=== PATIENT | male | born 1950 | race Caucasian/White ===

== ENCOUNTER 2022-01-02 04:58 | Inpatient (IN) ==
[2022-01-02 05:29] LABS: PCO2 Arterial 91 mmHg (35-45); PO2 Arterial 59 mmHg (80-100)
[2022-01-02] MEDS ORDERED: Magnesium Hydroxide LIQ 30 ML UDC PO PRN (05:37)
[2022-01-02] MEDS ORDERED: Albuterol HFA INHALER 8 gm MDI INH PRN (05:37)
[2022-01-02] MEDS ORDERED: Dextrose 50% Syringe 50 ml 25 GM/50 ML SYRINGE IV PUSH PRN (05:44)
[2022-01-02 05:48] LABS: INR 1.1 (0.86-1.15)
[2022-01-02 06:03] LABS: ABS Lymphocytes 0.2 10^3/ul (1.0-4.8); ABS Monocytes 0.7 10^3/ul (0-0.8); ABS Neutrophils 5.8 10^3/ul (1.5-7.7); Eosinophil % 0.2 %; Hematocrit 31 % (42-52); Hemoglobin 9.4 g/dL (14.0-18.0); Lymphocyte % 2.4 %; Mean Corpuscular HGB Conc 30 g/dL (31-36); Mean Corpuscular Hemoglobin 33 pg (27-31); Mean Corpuscular Volume 108 fL (80-94); Mean Platelet Volume 7.3 fL (7.4-10.4); Nucleated Red Blood Cells % 0.2; Platelet Count 214 10^3/uL (150-450); Red Cell Distribution Width 22 % (10-15); White Blood Count 6.7 10^3/uL (3.5-10.8)
[2022-01-02 06:14] LABS: ALT 12 U/L (7-52); AST 16 U/L (13-39); Albumin/Globulin Ratio 0.9 (1-3); Alkaline Phosphatase 115 U/L (35-149); Blood Urea Nitrogen 23 mg/dL (6-24); CO2 Carbon Dioxide 36 mmol/L (22-32); Calcium 8.6 mg/dL (8.6-10.3); Chloride 98 mmol/L (101-111); Globulin 3.4 g/dL (2-4); Glucose 136 mg/dL (70-100); Potassium 4.5 mmol/L (3.5-5.0); Sodium 134 mmol/L (135-145); Total Protein 6.4 g/dL (6.4-8.9); eGFR CKD-EPI 41.9 (>60)
[2022-01-02 06:24] LABS: Cholesterol 120 mg/dL; HDL Cholesterol 41.3 mg/dL; LDL Cholesterol 61 mg/dL; Triglycerides 90 mg/dL
[2022-01-02 06:31] LABS: Macrocytosis 2+; Stomatocytes 2+
[2022-01-02 06:32] LABS: Basophilic Stippling 2+; Polychromasia 1+
[2022-01-02 06:41] LABS: C Reactive Protein 63.15 mg/L (<8.01)
[2022-01-02 07:16] LABS: PO2 Arterial 271 mmHg (80-100)
[2022-01-02 07:37] LABS: PCO2 Arterial 111 mmHg (35-45)
[2022-01-02] MEDS ORDERED: Rocuronium 50 mg VIAL 10 mg/ml 5 ml VIAL (50 mg) ONE ×2 (08:24→10:02)
[2022-01-02] MEDS ORDERED: Succinylcholine 200 mg VIAL 20 mg/ml 10 ml VIAL (200 mg) ONE (08:24)
[2022-01-02] MEDS ORDERED: Propofol 10 mg/ml 100 ML BTL 100 ML ONE (08:28)
[2022-01-02] MEDS: Propofol 10 mg/ml 100 ML BTL 100 ML IV SCH ×2 (08:30→20:46)
[2022-01-02] MEDS ORDERED: Propofol 10 MG/ML 20 ML BTL ONE (08:38)
[2022-01-02] MEDS ORDERED: Fluticasone HFA 220 mcg(NF) MDI INH SCH (09:00)
[2022-01-02] MEDS ORDERED: Enoxaparin 80 MG/0.8 ML SYR SUBCUT SCH (09:00)
[2022-01-02] MEDS ORDERED: Mometasone/Formoter 200/5 MDI INH SCH (09:00)
[2022-01-02] MEDS ORDERED: Albuterol/Ipratropium NEB.SOL (2.5/0.5 MG) 3 ML NEB.SOLN ONE ×2 (09:12→09:57)
[2022-01-02] MEDS ORDERED: Norepinephrine 16MCG/ML BAGD5W 4,000 MCG/250 ML BAG IV ONE (09:56)
[2022-01-02] MEDS: Norepinephrine 16MCG/ML BAGD5W 4,000 MCG/250 ML BAG IV SCH (10:00)
[2022-01-02] MEDS ORDERED: methylPREDNISolone 125 mg 2 ML VIAL ONE (10:13)
[2022-01-02] MEDS ORDERED: Magnesium Sulfate 2 gm BAG 2 GM/50 ML BAG ONE (10:13)
[2022-01-02 10:44] LABS: PCO2 Arterial 66 mmHg (35-45)
[2022-01-02 10:46] LABS: PO2 Arterial 41 mmHg (80-100)
[2022-01-02] MEDS ORDERED: Magnesium Sulfate 2 gm BAG 2 GM/50 ML BAG IVPB ONE (10:59)
[2022-01-02] MEDS ORDERED: NORMOSOL-R pH 7.4 1000 mL BAG 500 ML IV SCH (11:00)
[2022-01-02] MEDS ORDERED: methylPREDNISolone 125 mg 2 ML VIAL IV ONE (11:00)
[2022-01-02] MEDS ORDERED: Rocuronium 50 mg VIAL 10 mg/ml 5 ml VIAL (50 mg) IV ONE (11:01)
[2022-01-02] MEDS: Polyethylene Glycol 3350 17 GM PACKET PO SCH ×2 (11:20→20:45)
[2022-01-02] MEDS: Multivitamins/Minerals TAB PO SCH (11:20)
[2022-01-02] MEDS ORDERED: Zosyn per Pharmacy NOTE FOLLOW UP PRN (11:31)
[2022-01-02 11:41] LABS: Urine Appearance Clear; Urine Bilirubin Negative (Negative); Urine Blood Negative (Negative); Urine Color Yellow; Urine Glucose Negative (Negative); Urine Ketones Negative (Negative); Urine Nitrite Negative (Negative); Urine Protein 2+(100 mg/dL) (Negative); Urine Specific Gravity 1.012 (1.002-1.030); Urine Urobilinogen Negative (Negative)
[2022-01-02 11:44] LABS: PCO2 Arterial 54 mmHg (35-45)
[2022-01-02 11:47] LABS: PO2 Arterial 55 mmHg (80-100)
[2022-01-02 11:51] LABS: Body Fluid Source Broncheoalveolar lav
[2022-01-02] MEDS ORDERED: Vancomycin per Pharmacy 1 EA NOTE FOLLOW UP SCH (12:00)
[2022-01-02] MEDS ORDERED: Piperacillin/Tazobac ADVAN 3.375 GM in NS 0.9% 100 ml BAG 100 ML IV ONE (12:00)
[2022-01-02] MEDS ORDERED: Zosyn per Pharmacy NOTE FOLLOW UP SCH (12:00)
[2022-01-02] MEDS ORDERED: Vancomycin 1,000 MG in NS 0.9% 250 ml 250 ML IVPB ONE (12:00)
[2022-01-02] MEDS: Pantoprazole VIAL 40 MG VIAL IV SCH (12:17)
[2022-01-02] MEDS: Chlorhexidine MOUTHWASH 0.12% 15 ML UDC TOPICAL SCH ×4 (12:17→23:55)
[2022-01-02] MEDS: Bacitracin OINTMENT TUBE TOPICAL SCH (12:23)
[2022-01-02 13:12] LABS: Urine Bacteria Absent (Absent); Urine Red Blood Cell Absent (Absent); Urine White Blood Cell Absent (Absent)
[2022-01-02 14:17] LABS: Body Fluid Appearance Cloudy
[2022-01-02 14:18] LABS: Body Fluid Color Colorless
[2022-01-02 14:25] LABS: Body Fluid NRBC 8; Body Fluid Total Cells Counted 300
[2022-01-02] MEDS ORDERED: Warfarin per PHARMACY **NOTE FOLLOW UP SCH (16:00)
[2022-01-02] MEDS ORDERED: Heparin 5000 UNITS/ML 1 mL VIAL IV SCH (16:00)
[2022-01-02] MEDS: Heparin DRIP 25,000 UNITS BAG 25,000 UNITS/500 ML BAG IV SCH ×2 (16:56→23:56)
[2022-01-02] MEDS: ZOSYN 3.375 GM Q8H per EXTENDED INFUSION IV SCH (17:01)
[2022-01-02 17:03] LABS: ABS Lymphocytes 0.1 10^3/ul (1.0-4.8); ABS Monocytes 0.5 10^3/ul (0-0.8); ABS Neutrophils 10.8 10^3/ul (1.5-7.7); Eosinophil % 0.1 %; Hematocrit 28 % (42-52); Hemoglobin 8.5 g/dL (14.0-18.0); Mean Corpuscular HGB Conc 30 g/dL (31-36); Mean Corpuscular Hemoglobin 33 pg (27-31); Mean Corpuscular Volume 107 fL (80-94); Mean Platelet Volume 7.8 fL (7.4-10.4); Nucleated Red Blood Cells % 0.2; Platelet Count 201 10^3/uL (150-450); Red Blood Count 2.63 10^6 /uL (4.18-5.48); Red Cell Distribution Width 22 % (10-15); White Blood Count 11.5 10^3/uL (3.5-10.8)
[2022-01-02 17:30] LABS: eGFR CKD-EPI 31.3 (>60)
[2022-01-02] MEDS ORDERED: Dextran 70/Hypromellose Tears Eye Drops 15 ml BTL (for Artificials Tears) BOTH EYES PRN (18:03)
[2022-01-02] MEDS: Senna TAB 8.6 mg TAB PO SCH (20:44)
[2022-01-02] MEDS: Insulin GLARGINE 100 un/ml 10 ml VIAL SUBCUT SCH (20:45)
[2022-01-02] MEDS ORDERED: Senna TAB 8.6 mg TAB PO SCH (21:00)
[2022-01-02] MEDS ORDERED: NS 0.9% 100 ml BAG 100 ML ONE (23:52)
[2022-01-03] MEDS: Norepinephrine 16MCG/ML BAGD5W 4,000 MCG/250 ML BAG IV SCH (01:22)
[2022-01-03] MEDS: ZOSYN 3.375 GM Q8H per EXTENDED INFUSION IV SCH ×2 (01:23→07:56)
[2022-01-03] MEDS: Propofol 10 mg/ml 100 ML BTL 100 ML IV SCH ×3 (03:14→23:30)
[2022-01-03] MEDS: Chlorhexidine MOUTHWASH 0.12% 15 ML UDC TOPICAL SCH ×6 (04:42→23:31)
[2022-01-03 05:21] LABS: ABS Lymphocytes 0.2 10^3/ul (1.0-4.8); ABS Monocytes 0.9 10^3/ul (0-0.8); ABS Neutrophils 13.9 10^3/ul (1.5-7.7); Hematocrit 26 % (42-52); Lymphocyte % 1.5 %; Mean Corpuscular HGB Conc 31 g/dL (31-36); Mean Corpuscular Hemoglobin 33 pg (27-31); Mean Corpuscular Volume 104 fL (80-94); Nucleated Red Blood Cells % 0.1; Platelet Count 277 10^3/uL (150-450); Red Blood Count 2.48 10^6 /uL (4.18-5.48); Red Cell Distribution Width 23 % (10-15)
[2022-01-03 05:36] LABS: INR 1.45 (0.86-1.15)
[2022-01-03 05:54] LABS: Calcium 8.5 mg/dL (8.6-10.3); Magnesium 2.5 mg/dL (1.9-2.7); Phosphorus 6.5 mg/dL (2.5-5.0); Potassium 4.5 mmol/L (3.5-5.0); Vancomycin Random 8.9 mcg/mL; eGFR CKD-EPI 24.2 (>60)
[2022-01-03] MEDS ORDERED: Vancomycin Random Level NOTE FOLLOW UP ONE (06:00)
[2022-01-03] MEDS ORDERED: NS 0.9% 100 ml BAG 100 ML ONE (06:08)
[2022-01-03] MEDS: Polyethylene Glycol 3350 17 GM PACKET PO SCH ×2 (09:24→21:17)
[2022-01-03] MEDS: Docusate LIQ 100 MG/10 ML UDC PO SCH ×2 (09:24→21:16)
[2022-01-03] MEDS: Multivitamins/Minerals TAB PO SCH (09:35)
[2022-01-03] MEDS: Bacitracin OINTMENT TUBE TOPICAL SCH (09:35)
[2022-01-03] MEDS ORDERED: Vancomycin 1000 MG in NS 0.9% 250 ML IVPB ONE (10:00)
[2022-01-03] MEDS: Pantoprazole VIAL 40 MG VIAL IV SCH (10:46)
[2022-01-03 13:53] LABS: Calcium 8.3 mg/dL (8.6-10.3); Potassium 4.1 mmol/L (3.5-5.0); eGFR CKD-EPI 22.1 (>60)
[2022-01-03] MEDS: Bumetanide IV 0.25 MG/ML 4 ml VIAL (1 mg) SLOW PUSH SCH ×2 (14:17→21:54)
[2022-01-03] MEDS: Heparin DRIP 25,000 UNITS BAG 25,000 UNITS/500 ML BAG IV SCH (15:37)
[2022-01-03] MEDS: Warfarin DAILY REMINDER **NOTE FOLLOW UP SCH (17:50)
[2022-01-03] MEDS: ZOSYN 3.375 GM Q12H per EXTENDED INFUSION IV SCH (19:29)
[2022-01-03] MEDS: Senna TAB 8.6 mg TAB PO SCH (21:16)
[2022-01-03] MEDS: Insulin GLARGINE 100 un/ml 10 ml VIAL SUBCUT SCH (21:17)
[2022-01-04] MEDS: methylPREDNISolone SOD 40 mg/ml 1 ml VIAL IV SCH ×3 (00:53→21:04)
[2022-01-04] MEDS: Chlorhexidine MOUTHWASH 0.12% 15 ML UDC TOPICAL SCH ×6 (03:34→23:58)
[2022-01-04 04:20] LABS: Hematocrit 24 % (42-52); Hemoglobin 7.6 g/dL (14.0-18.0); Mean Corpuscular HGB Conc 32 g/dL (31-36); Mean Corpuscular Hemoglobin 33 pg (27-31); Mean Corpuscular Volume 102 fL (80-94); Mean Platelet Volume 7.8 fL (7.4-10.4); Platelet Count 248 10^3/uL (150-450); Red Blood Count 2.33 10^6 /uL (4.18-5.48); Red Cell Distribution Width 22 % (10-15); White Blood Count 9.6 10^3/uL (3.5-10.8)
[2022-01-04 04:26] LABS: INR 5.31 (0.86-1.15)
[2022-01-04 04:54] LABS: Magnesium 2.5 mg/dL (1.9-2.7); Phosphorus 6.5 mg/dL (2.5-5.0); Potassium 4.7 mmol/L (3.5-5.0); Vancomycin Random 15.2 mcg/mL; eGFR CKD-EPI 18.3 (>60)
[2022-01-04 05:04] LABS: Anisocytosis 2+; Hypochromasia 1+; Target Cells 1+
[2022-01-04 05:05] LABS: Microcytosis 1+
[2022-01-04 05:06] LABS: ABS Basophils 0.1 10^3/ul (0-0.2); ABS Lymphocytes 0.1 10^3/ul (1.0-4.8); ABS Monocytes 0.4 10^3/ul (0-0.8); ABS Neutrophils 8.9 10^3/ul (1.5-7.7); Lymphocyte % 1.5 %; Nucleated Red Blood Cells % 0.2
[2022-01-04] MEDS ORDERED: Vancomycin Random Level NOTE FOLLOW UP ONE (06:00)
[2022-01-04] MEDS: Propofol 10 mg/ml 100 ML BTL 100 ML IV SCH ×2 (08:38→14:23)
[2022-01-04] MEDS: Polyethylene Glycol 3350 17 GM PACKET PO SCH ×2 (08:39→21:23)
[2022-01-04] MEDS: Bumetanide IV 0.25 MG/ML 4 ml VIAL (1 mg) SLOW PUSH SCH ×2 (08:39→21:04)
[2022-01-04] MEDS: Docusate LIQ 100 MG/10 ML UDC PO SCH ×2 (08:39→21:23)
[2022-01-04] MEDS: ZOSYN 3.375 GM Q12H per EXTENDED INFUSION IV SCH ×2 (08:55→19:07)
[2022-01-04] MEDS: Bacitracin OINTMENT TUBE TOPICAL SCH (08:55)
[2022-01-04] MEDS: Multivitamins ADULT w/MIN LIQ 15 ML UDC PO SCH (08:56)
[2022-01-04] MEDS: Pantoprazole VIAL 40 MG VIAL IV SCH (11:34)
[2022-01-04 11:56] LABS: PCO2 Arterial 40 mmHg (35-45); PO2 Arterial 69 mmHg (80-100)
[2022-01-04 13:14] LABS: INR 6.16 (0.86-1.15)
[2022-01-04] MEDS ORDERED: Albuterol/Ipratropium NEB.SOL (2.5/0.5 MG) 3 ML NEB.SOLN INH PRN (16:11)
[2022-01-04] MEDS ORDERED: Albuterol/Ipratropium NEB.SOL (2.5/0.5 MG) 3 ML NEB.SOLN ONE (16:12)
[2022-01-04] MEDS: Warfarin DAILY REMINDER **NOTE FOLLOW UP SCH (16:21)
[2022-01-04] MEDS ORDERED: Warfarin - No Order Today **NOTE FOLLOW UP ONE (17:00)
[2022-01-04] MEDS: fentaNYL 100 mcg/2 ml 50 MCG/ML VIAL IV SLOW PU PRN (18:26)
[2022-01-04] MEDS: Insulin GLARGINE 100 un/ml 10 ml VIAL SUBCUT SCH (21:06)
[2022-01-04] MEDS: Senna TAB 8.6 mg TAB PO SCH (21:23)
[2022-01-05] MEDS: Chlorhexidine MOUTHWASH 0.12% 15 ML UDC TOPICAL SCH ×5 (02:18→20:23)
[2022-01-05] MEDS: Propofol 10 mg/ml 100 ML BTL 100 ML IV SCH (02:18)
[2022-01-05 05:08] LABS: ABS Lymphocytes 0.1 10^3/ul (1.0-4.8); ABS Monocytes 0.3 10^3/ul (0-0.8); ABS Neutrophils 7.8 10^3/ul (1.5-7.7); Hematocrit 25 % (42-52); Hemoglobin 7.9 g/dL (14.0-18.0); Lymphocyte % 1.3 %; Mean Corpuscular HGB Conc 32 g/dL (31-36); Mean Corpuscular Hemoglobin 32 pg (27-31); Mean Corpuscular Volume 101 fL (80-94); Mean Platelet Volume 8.1 fL (7.4-10.4); Nucleated Red Blood Cells % 0.3; Platelet Count 256 10^3/uL (150-450); Red Blood Count 2.44 10^6 /uL (4.18-5.48); Red Cell Distribution Width 22 % (10-15); White Blood Count 8.3 10^3/uL (3.5-10.8)
[2022-01-05 05:35] LABS: INR >10.00 (0.86-1.15)
[2022-01-05 05:51] LABS: Calcium 8.5 mg/dL (8.6-10.3); Magnesium 2.7 mg/dL (1.9-2.7); Phosphorus 7.8 mg/dL (2.5-5.0); eGFR CKD-EPI 15.9 (>60)
[2022-01-05 06:56] LABS: Potassium 5.3 mmol/L (3.5-5.0)
[2022-01-05] MEDS: ZOSYN 3.375 GM Q12H per EXTENDED INFUSION IV SCH (07:49)
[2022-01-05 08:06] LABS: Albumin 2.5 g/dL (3.2-5.2); Albumin/Globulin Ratio 0.8 (1-3); Direct Bilirubin 0.2 mg/dL (0.03-0.18); Globulin 3.1 g/dL (2-4); Indirect Bilirubin 0.3 mg/dL (0.3-1.0); Total Bilirubin 0.5 mg/dL (0.2-1.0); Total Protein 5.6 g/dL (6.4-8.9)
[2022-01-05] MEDS: Multivitamins ADULT w/MIN LIQ 15 ML UDC PO SCH (09:10)
[2022-01-05] MEDS: Docusate LIQ 100 MG/10 ML UDC PO SCH ×2 (09:11→20:23)
[2022-01-05] MEDS: Polyethylene Glycol 3350 17 GM PACKET PO SCH ×2 (09:11→20:44)
[2022-01-05] MEDS: methylPREDNISolone SOD 40 mg/ml 1 ml VIAL IV SCH ×2 (09:13→20:23)
[2022-01-05] MEDS: Bacitracin OINTMENT TUBE TOPICAL SCH (09:13)
[2022-01-05] MEDS ORDERED: Phytonadione IV (Adult) 2.5 MG in NS 0.9% 50 ML 50 ML IV ONE (09:45)
[2022-01-05] MEDS: Pantoprazole VIAL 40 MG VIAL IV SCH (10:54)
[2022-01-05] MEDS ORDERED: Zosyn per Pharmacy NOTE FOLLOW UP SCH (13:00)
[2022-01-05 14:51] LABS: INR 2.91 (0.86-1.15)
[2022-01-05] MEDS: Heparin DRIP 25,000 UNITS BAG 25,000 UNITS/500 ML BAG IV SCH (15:35)
[2022-01-05] MEDS ORDERED: Heparin 5000 UNITS/ML 1 mL VIAL IV SCH (16:00)
[2022-01-05 16:08] LABS: Activated Partial Thrombo Time 47.3 seconds (26.0-38.0)
[2022-01-05] MEDS: Piperacillin/Tazobac ADVAN 3.375 GM in NS 0.9% 100 ml BAG 100 ML IV SCH (20:24)
[2022-01-05] MEDS: Insulin GLARGINE 100 un/ml 10 ml VIAL SUBCUT SCH (20:24)
[2022-01-05] MEDS: Senna TAB 8.6 mg TAB PO SCH (20:44)
[2022-01-06] MEDS: fentaNYL 100 mcg/2 ml 50 MCG/ML VIAL IV SLOW PU PRN ×2 (00:18→13:39)
[2022-01-06] MEDS: Chlorhexidine MOUTHWASH 0.12% 15 ML UDC TOPICAL SCH ×7 (00:19→23:40)
[2022-01-06] MEDS: Propofol 10 mg/ml 100 ML BTL 100 ML IV SCH ×4 (00:49→19:19)
[2022-01-06 03:25] LABS: ABS Lymphocytes 0.2 10^3/ul (1.0-4.8); ABS Monocytes 0.6 10^3/ul (0-0.8); ABS Neutrophils 7.9 10^3/ul (1.5-7.7); ABS Nucleated RBC 0.1 10^3/ul; Hematocrit 24 % (42-52); Hemoglobin 7.8 g/dL (14.0-18.0); Lymphocyte % 1.8 %; Mean Corpuscular HGB Conc 32 g/dL (31-36); Mean Corpuscular Hemoglobin 32 pg (27-31); Mean Corpuscular Volume 101 fL (80-94); Mean Platelet Volume 8.1 fL (7.4-10.4); Nucleated Red Blood Cells % 0.7; Platelet Count 244 10^3/uL (150-450); Red Blood Count 2.41 10^6 /uL (4.18-5.48); Red Cell Distribution Width 22 % (10-15); White Blood Count 8.7 10^3/uL (3.5-10.8)
[2022-01-06 03:38] LABS: Activated Partial Thrombo Time 42.8 seconds (26.0-38.0); INR 1.85 (0.86-1.15)
[2022-01-06 03:59] LABS: Calcium 8.2 mg/dL (8.6-10.3); Magnesium 2.4 mg/dL (1.9-2.7); Phosphorus 4.7 mg/dL (2.5-5.0); Potassium 4.2 mmol/L (3.5-5.0); eGFR CKD-EPI 28.2 (>60)
[2022-01-06] MEDS: methylPREDNISolone SOD 40 mg/ml 1 ml VIAL IV SCH ×2 (08:38→20:05)
[2022-01-06 08:56] LABS: Hepatitis B Surface Antigen Nonreactive (Nonreactive)
[2022-01-06 09:14] LABS: Hepatitis B Surface Ab Not Immune (Immune)
[2022-01-06] MEDS: Piperacillin/Tazobac ADVAN 3.375 GM in NS 0.9% 100 ml BAG 100 ML IV SCH ×2 (09:47→20:05)
[2022-01-06] MEDS: Docusate LIQ 100 MG/10 ML UDC PO SCH ×2 (11:33→19:59)
[2022-01-06] MEDS: Polyethylene Glycol 3350 17 GM PACKET PO SCH ×2 (11:35→20:00)
[2022-01-06] MEDS: Bacitracin OINTMENT TUBE TOPICAL SCH (12:25)
[2022-01-06] MEDS: Pantoprazole VIAL 40 MG VIAL IV SCH (12:58)
[2022-01-06] MEDS ORDERED: Lidocaine 1% MPF 2 ML VIAL INJ ONE (13:23)
[2022-01-06] MEDS ORDERED: Lidocaine 1% VIAL 10 MG/ML VIAL ONE (13:28)
[2022-01-06] MEDS: Multivitamins ADULT w/MIN LIQ 15 ML UDC PO SCH (17:45)
[2022-01-06] MEDS: Heparin DRIP 25,000 UNITS BAG 25,000 UNITS/500 ML BAG IV SCH (18:20)
[2022-01-06] MEDS: Senna TAB 8.6 mg TAB PO SCH (20:00)
[2022-01-06] MEDS: Insulin GLARGINE 100 un/ml 10 ml VIAL SUBCUT SCH (20:22)
[2022-01-07] MEDS: fentaNYL 100 mcg/2 ml 50 MCG/ML VIAL IV SLOW PU PRN ×3 (02:05→15:03)
[2022-01-07] MEDS: Propofol 10 mg/ml 100 ML BTL 100 ML IV SCH ×3 (02:09→18:08)
[2022-01-07 04:52] LABS: ABS Lymphocytes 0.3 10^3/ul (1.0-4.8); ABS Monocytes 0.9 10^3/ul (0-0.8); ABS Neutrophils 8.6 10^3/ul (1.5-7.7); Hematocrit 26 % (42-52); Hemoglobin 8.4 g/dL (14.0-18.0); Lymphocyte % 2.6 %; Mean Corpuscular HGB Conc 33 g/dL (31-36); Mean Corpuscular Hemoglobin 33 pg (27-31); Mean Corpuscular Volume 101 fL (80-94); Mean Platelet Volume 7.8 fL (7.4-10.4); Platelet Count 275 10^3/uL (150-450); Red Blood Count 2.53 10^6 /uL (4.18-5.48); Red Cell Distribution Width 21 % (10-15); White Blood Count 9.8 10^3/uL (3.5-10.8)
[2022-01-07] MEDS: Chlorhexidine MOUTHWASH 0.12% 15 ML UDC TOPICAL SCH ×6 (04:55→23:00)
[2022-01-07 06:00] LABS: Calcium 8.3 mg/dL (8.6-10.3); Potassium 4.9 mmol/L (3.5-5.0)
[2022-01-07 06:06] LABS: eGFR CKD-EPI 20.1 (>60)
[2022-01-07] MEDS: Piperacillin/Tazobac ADVAN 3.375 GM in NS 0.9% 100 ml BAG 100 ML IV SCH ×2 (07:29→20:36)
[2022-01-07] MEDS: Docusate LIQ 100 MG/10 ML UDC PO SCH ×2 (08:02→20:36)
[2022-01-07] MEDS: methylPREDNISolone SOD 40 mg/ml 1 ml VIAL IV SCH ×2 (08:03→20:37)
[2022-01-07] MEDS: Multivitamins ADULT w/MIN LIQ 15 ML UDC PO SCH (08:03)
[2022-01-07] MEDS: Polyethylene Glycol 3350 17 GM PACKET PO SCH ×2 (08:04→20:37)
[2022-01-07] MEDS: Bacitracin OINTMENT TUBE TOPICAL SCH (08:42)
[2022-01-07] MEDS ORDERED: SODIUM THIOSULFATE 12.5 GM IV PRN (11:22)
[2022-01-07] MEDS ORDERED: Heparin 1,000 UNIT/ML 10 ml (10,000 UNITS) CATHLAB/DIALYSIS DIALYSIS ONE (12:06)
[2022-01-07] MEDS: Pantoprazole VIAL 40 MG VIAL IV SCH (12:51)
[2022-01-07] MEDS: Sodium Thiosulfate 25 GM in 200 ML IV PRN (12:53)
[2022-01-07] MEDS: Heparin DRIP 25,000 UNITS BAG 25,000 UNITS/500 ML BAG IV SCH (14:24)
[2022-01-07 15:16] LABS: Protein C Activity 19 % (70 - 150)
[2022-01-07] MEDS ORDERED: NS 0.9% 100 ml BAG 100 ML ONE (20:33)
[2022-01-07] MEDS: Senna TAB 8.6 mg TAB PO SCH (20:37)
[2022-01-07] MEDS: Insulin GLARGINE 100 un/ml 10 ml VIAL SUBCUT SCH (20:37)
[2022-01-07] MEDS ORDERED: TRIMETH IVPB ONE (22:00)
[2022-01-07] MEDS ORDERED: SULFAMETHOXAZOLE IVPB ONE (22:00)
[2022-01-07] MEDS ORDERED: D5W IVPB ONE (22:00)
[2022-01-08] MEDS ORDERED: Bumetanide IV 0.25 MG/ML 4 ml VIAL (1 mg) SLOW PUSH ONE (00:10)
[2022-01-08] MEDS ORDERED: D5W 500 ml BAG 500 ML ONE (01:11)
[2022-01-08] MEDS: Chlorhexidine MOUTHWASH 0.12% 15 ML UDC TOPICAL SCH ×5 (02:37→18:02)
[2022-01-08] MEDS: Propofol 10 mg/ml 100 ML BTL 100 ML IV SCH (05:58)
[2022-01-08 06:05] LABS: Hematocrit 27 % (42-52); Hemoglobin 8.3 g/dL (14.0-18.0); Mean Corpuscular HGB Conc 30 g/dL (31-36); Mean Corpuscular Hemoglobin 31 pg (27-31); Mean Corpuscular Volume 104 fL (80-94); Mean Platelet Volume 7.8 fL (7.4-10.4); Platelet Count 322 10^3/uL (150-450); Red Blood Count 2.64 10^6 /uL (4.18-5.48); Red Cell Distribution Width 22 % (10-15); White Blood Count 20.3 10^3/uL (3.5-10.8)
[2022-01-08 07:17] LABS: ABS Basophils 0.1 10^3/ul (0-0.2); ABS Lymphocytes 0.2 10^3/ul (1.0-4.8); ABS Monocytes 1.6 10^3/ul (0-0.8); ABS Neutrophils 18.4 10^3/ul (1.5-7.7); ABS Nucleated RBC 0.3 10^3/ul; Lymphocyte % 0.8 %; Nucleated Red Blood Cells % 1.4
[2022-01-08 07:20] LABS: Acanthocytes 1+; Anisocytosis 2+
[2022-01-08 07:35] LABS: Albumin 2.7 g/dL (3.2-5.2); Magnesium 2.6 mg/dL (1.9-2.7)
[2022-01-08 07:41] LABS: Albumin/Globulin Ratio 0.8 (1-3); Globulin 3.4 g/dL (2-4); Phosphorus 7.3 mg/dL (2.5-5.0); Total Protein 6.1 g/dL (6.4-8.9)
[2022-01-08 07:56] LABS: Calcium 8.4 mg/dL (8.6-10.3); Potassium 4.3 mmol/L (3.5-5.0); Total Bilirubin 0.4 mg/dL (0.2-1.0); eGFR CKD-EPI 28.2 (>60)
[2022-01-08] MEDS ORDERED: Albumin Human 25% 25 GM/100 ML BTL IV ONE (09:27)
[2022-01-08] MEDS ORDERED: Norepinephrine 16MCG/ML BAGD5W 4,000 MCG/250 ML BAG IV ONE (09:32)
[2022-01-08] MEDS: Docusate LIQ 100 MG/10 ML UDC PO SCH ×2 (09:39→20:53)
[2022-01-08] MEDS: Polyethylene Glycol 3350 17 GM PACKET PO SCH ×2 (09:39→20:53)
[2022-01-08] MEDS ORDERED: Norepinephrine 16MCG/ML BAGD5W 4,000 MCG/250 ML BAG IV SCH (10:00)
[2022-01-08] MEDS: Bacitracin OINTMENT TUBE TOPICAL SCH (10:01)
[2022-01-08] MEDS: Piperacillin/Tazobac ADVAN 3.375 GM in NS 0.9% 100 ml BAG 100 ML IV SCH ×2 (10:01→20:52)
[2022-01-08] MEDS: methylPREDNISolone SOD 40 mg/ml 1 ml VIAL IV SCH ×2 (10:01→20:52)
[2022-01-08] MEDS: Pantoprazole VIAL 40 MG VIAL IV SCH (10:01)
[2022-01-08] MEDS: Multivitamins ADULT w/MIN LIQ 15 ML UDC PO SCH (10:01)
[2022-01-08] MEDS: Heparin 1,000 UNIT/ML 10 ml (10,000 UNITS) CATHLAB/DIALYSIS DIALYSIS ONE ×2 (10:02→11:21)
[2022-01-08] MEDS: Heparin DRIP 25,000 UNITS BAG 25,000 UNITS/500 ML BAG IV SCH (10:11)
[2022-01-08] MEDS ORDERED: SULFAMETHOXAZOLE IVPB ONE (12:00)
[2022-01-08] MEDS ORDERED: D5W IVPB ONE (12:00)
[2022-01-08] MEDS ORDERED: TRIMETH IVPB ONE (12:00)
[2022-01-08] MEDS: Sodium Thiosulfate 25 GM in 200 ML IV PRN (12:21)
[2022-01-08] MEDS: fentaNYL 100 mcg/2 ml 50 MCG/ML VIAL IV SLOW PU PRN (12:58)
[2022-01-08] MEDS ORDERED: Lidocaine 1% VIAL 10 MG/ML VIAL ONE (13:25)
[2022-01-08] MEDS ORDERED: fentaNYL 100 mcg/2 ml 50 MCG/ML VIAL ONE (13:54)
[2022-01-08] MEDS ORDERED: Desmopressin Acetate 4 MCG/ML 1 ML SDV SUBCUT ONE (15:32)
[2022-01-08] MEDS ORDERED: fentaNYL 100 mcg/2 ml 50 MCG/ML VIAL IV SLOW PU ONE (15:32)
[2022-01-08] MEDS ORDERED: NS 0.9% IVPB ONE (16:00)
[2022-01-08] MEDS ORDERED: DESMOPRESSIN ACETATE IVPB ONE (16:00)
[2022-01-08] MEDS ORDERED: Lidocaine 1% VIAL 10 MG/ML VIAL INJ ONE (16:00)
[2022-01-08 17:38] LABS: PCO2 Arterial 37 mmHg (35-45)
[2022-01-08 17:43] LABS: PO2 Arterial 56 mmHg (80-100)
[2022-01-08] MEDS ORDERED: Dexmedetomidine 1,000 MCG in NS 0.9% 250 ml 240 ML IV SCH (18:00)
[2022-01-08] MEDS ORDERED: NS 0.9% 100 ml BAG 100 ML ONE (20:51)
[2022-01-08] MEDS: Senna TAB 8.6 mg TAB PO SCH (20:53)
[2022-01-08] MEDS: Insulin GLARGINE 100 un/ml 10 ml VIAL SUBCUT SCH (21:39)
[2022-01-09] MEDS: Chlorhexidine MOUTHWASH 0.12% 15 ML UDC TOPICAL SCH ×6 (00:17→17:52)
[2022-01-09 05:13] LABS: Hematocrit 20 % (42-52); Hemoglobin 6.4 g/dL (14.0-18.0); Mean Corpuscular HGB Conc 32 g/dL (31-36); Mean Corpuscular Hemoglobin 32 pg (27-31); Mean Corpuscular Volume 101 fL (80-94); Mean Platelet Volume 8.4 fL (7.4-10.4); Platelet Count 228 10^3/uL (150-450); Red Blood Count 1.98 10^6 /uL (4.18-5.48); Red Cell Distribution Width 21 % (10-15); White Blood Count 17.5 10^3/uL (3.5-10.8)
[2022-01-09 06:29] LABS: Calcium 8.3 mg/dL (8.6-10.3); Potassium 3.5 mmol/L (3.5-5.0); eGFR CKD-EPI 33.6 (>60)
[2022-01-09 06:41] LABS: Hematocrit 20 % (42-52); Hemoglobin 6.3 g/dL (14.0-18.0)
[2022-01-09] MEDS: Multivitamins ADULT w/MIN LIQ 15 ML UDC PO SCH (07:36)
[2022-01-09] MEDS: Piperacillin/Tazobac ADVAN 3.375 GM in NS 0.9% 100 ml BAG 100 ML IV SCH ×2 (07:36→21:22)
[2022-01-09] MEDS: Docusate LIQ 100 MG/10 ML UDC PO SCH ×2 (07:36→20:57)
[2022-01-09] MEDS: Polyethylene Glycol 3350 17 GM PACKET PO SCH ×2 (07:36→20:57)
[2022-01-09] MEDS: Bacitracin OINTMENT TUBE TOPICAL SCH (07:36)
[2022-01-09] MEDS: methylPREDNISolone SOD 40 mg/ml 1 ml VIAL IV SCH ×2 (07:37→22:38)
[2022-01-09 08:14] LABS: Macrocytosis 2+; Polychromasia 1+
[2022-01-09 08:15] LABS: ABS Lymphocytes 0.2 10^3/ul (1.0-4.8); ABS Monocytes 1.4 10^3/ul (0-0.8); ABS Neutrophils 15.8 10^3/ul (1.5-7.7); ABS Nucleated RBC 0.1 10^3/ul; Anisocytosis 2+; Eosinophil % 0.1 %; Lymphocyte % 1.3 %; Nucleated Red Blood Cells % 0.3
[2022-01-09] MEDS: Heparin DRIP 25,000 UNITS BAG 25,000 UNITS/500 ML BAG IV SCH (10:16)
[2022-01-09 10:39] LABS: PCO2 Arterial 62 mmHg (35-45)
[2022-01-09 10:47] LABS: PO2 Arterial 57 mmHg (80-100)
[2022-01-09] MEDS: Pantoprazole VIAL 40 MG VIAL IV SCH (11:54)
[2022-01-09 12:15] LABS: PCO2 Arterial 41 mmHg (35-45); PO2 Arterial 65 mmHg (80-100)
[2022-01-09 13:40] LABS: PCO2 Arterial 42 mmHg (35-45); PO2 Arterial 62 mmHg (80-100)
[2022-01-09 14:14] LABS: Hematocrit 20 % (42-52); Hemoglobin 6.2 g/dL (14.0-18.0); Mean Corpuscular HGB Conc 31 g/dL (31-36); Mean Corpuscular Hemoglobin 31 pg (27-31); Mean Corpuscular Volume 100 fL (80-94); Mean Platelet Volume 8.4 fL (7.4-10.4); Platelet Count 207 10^3/uL (150-450); Red Blood Count 1.99 10^6 /uL (4.18-5.48); Red Cell Distribution Width 21 % (10-15); White Blood Count 15.5 10^3/uL (3.5-10.8)
[2022-01-09 14:22] LABS: Calcium 8.4 mg/dL (8.6-10.3); Potassium 3.8 mmol/L (3.5-5.0)
[2022-01-09 14:28] LABS: eGFR CKD-EPI 28.6 (>60)
[2022-01-09 15:57] LABS: High Sensitivity Troponin 1 Hr 61 pg/mL (<20)
[2022-01-09] MEDS ORDERED: SULFAMETHOXAZOLE IVPB SCH (16:00)
[2022-01-09] MEDS ORDERED: D5W IVPB SCH (16:00)
[2022-01-09] MEDS ORDERED: TRIMETH IVPB SCH (16:00)
[2022-01-09 17:02] LABS: PO2 Arterial 65 mmHg (80-100)
[2022-01-09 17:10] LABS: PCO2 Arterial 74 mmHg (35-45)
[2022-01-09 17:53] LABS: Hematocrit 24 % (42-52); Hemoglobin 7.6 g/dL (14.0-18.0)
[2022-01-09 18:36] LABS: PCO2 Arterial 54 mmHg (35-45)
[2022-01-09 18:42] LABS: PO2 Arterial 58 mmHg (80-100)
[2022-01-09] MEDS: Senna TAB 8.6 mg TAB PO SCH (20:57)
[2022-01-09] MEDS: Insulin GLARGINE 100 un/ml 10 ml VIAL SUBCUT SCH (21:22)
[2022-01-09 22:07] LABS: PCO2 Arterial 49 mmHg (35-45); PO2 Arterial 72 mmHg (80-100)
[2022-01-10] MEDS: Chlorhexidine MOUTHWASH 0.12% 15 ML UDC TOPICAL SCH ×3 (00:26→07:03)
[2022-01-10 06:25] LABS: ABS Lymphocytes 0.3 10^3/ul (1.0-4.8); ABS Monocytes 1.2 10^3/ul (0-0.8); ABS Neutrophils 18.3 10^3/ul (1.5-7.7); ABS Nucleated RBC 0.1 10^3/ul; Hematocrit 24 % (42-52); Hemoglobin 7.8 g/dL (14.0-18.0); Lymphocyte % 1.3 %; Mean Corpuscular HGB Conc 32 g/dL (31-36); Mean Corpuscular Hemoglobin 32 pg (27-31); Mean Corpuscular Volume 99 fL (80-94); Mean Platelet Volume 8.8 fL (7.4-10.4); Nucleated Red Blood Cells % 0.4; Platelet Count 305 10^3/uL (150-450); Red Blood Count 2.46 10^6 /uL (4.18-5.48); Red Cell Distribution Width 22 % (10-15); White Blood Count 19.7 10^3/uL (3.5-10.8)
[2022-01-10 06:59] LABS: Potassium 4.2 mmol/L (3.5-5.0); eGFR CKD-EPI 22.9 (>60)
[2022-01-10 07:43] LABS: PO2 Arterial 79 mmHg (80-100)
[2022-01-10 07:54] LABS: PCO2 Arterial 87 mmHg (35-45)
[2022-01-10] MEDS: Piperacillin/Tazobac ADVAN 3.375 GM in NS 0.9% 100 ml BAG 100 ML IV SCH (08:44)
[2022-01-10 10:11] VITALS: BP 94/47
== END 2022-01-10 12:27 | disposition expired | DRG 46 ==
LOC: SUATTDRO 04:58 → ICU 04:58
PROVIDERS: ADMIT Hospitalist; ATTEND Surgery Surgical Critical Care